=== PATIENT | female | born 1995 | race Caucasian/White ===

== ENCOUNTER 2023-12-11 13:55 | Emergency (ER) | payer OTHER ==
[2023-12-11 15:06] VITALS: O2SAT 98
--- NOTE | 2023-12-11 16:47 | ED Physician Documentation ---
PD HPI URI - Stated complaint Stated Complaint: COUGH,N/V,LIGHTHEADED - Chief complaint Chief Complaint: Resp - Additional information Additional information: 28-year-old female with history of asthma and type 2 diabetes presents emergency department for 1 day of cough nausea vomiting. Patient says that her daughter has had very similar symptoms for about a week or so now she is also checking into the ER as a patient for further evaluation of this. She has had no fevers or chills reports that she has asthma but feels like her symptoms have been alleviated with DuoNebs at home and albuterol. Patient reports that she knows that there is a lot of pneumonia as well as bronchitis going around the community right now she just wanted to double check to see if this is something that she is also experiencing. PD PAST MEDICAL HISTORY - Past Medical History Past Medical History: Yes Endocrine/Autoimmune: Type 2 diabetes - Past Surgical History Past Surgical History: No - Present Medications Home Medications: Ambulatory Orders Medication Instructions Recorded Confirmed Albuterol Sulf [Ventolin Hfa 1 - 2 puffs INH Q4HR PRN #1 ea 12/11/23 Inhaler] Benzonatate [Tessalon] 100 mg PO TID #30 cap 12/11/23 - Allergies Allergies/Adverse Reactions: Allergies Allergy/AdvReac Type Severity Reaction Status Date / Time Sulfa (Sulfonamide Allergy Unknown Verified 12/11/23 15:31 Antibiotics) - Social History Does the pt smoke?: No Smoking Status: Former smoker Does the pt drink ETOH?: No Does the pt have substance abuse?: No PD ED PE NORMAL - Vitals Vital signs reviewed: Yes - General General: Alert and oriented X 3, No acute distress, Well developed/nourished - HEENT HEENT: Atraumatic, PERRL - Cardiac Cardiac: RRR, No murmur, No gallop, Strong equal pulses - Respiratory Respiratory: No respiratory distress, Clear bilaterally - Derm Derm: Normal color, Warm and dry, No rash - Extremities Extremities: No edema, No calf tenderness / cord - Psych Psych: Normal mood, Normal affect Results - Vitals Vitals: Vital Signs - 24 hr 12/11/23 12/11/23 14:17 17:50 Temperature 35.7 C L Heart Rate 108 H 98 Respiratory 18 16 Rate Blood Pressure 130/93 H 145/90 H O2 Saturation 98 98 Oxygen O2 Source Room air - Labs Labs: Laboratory Tests 12/11/23 16:10 Nasal Adenovirus (PCR) NOT DETECTED Nasal B. parapertussis DNA (PCR) NOT DETECTED Nasal Coronavir 229E PCR NOT DETECTED Nasal Coronavir HKU1 PCR NOT DETECTED Nasal Coronavir NL63 PCR NOT DETECTED Nasal Coronavir OC43 PCR NOT DETECTED Nasal Enterovir/Rhinovir PCR NOT DETECTED Nasal Influenza B PCR NOT DETECTED Nasal Influenza A PCR NOT DETECTED Nasal Parainfluen 1 PCR NOT DETECTED Nasal Parainfluen 2 PCR NOT DETECTED Nasal Parainfluen 3 PCR NOT DETECTED Nasal Parainfluen 4 PCR NOT DETECTED Nasal RSV (PCR) NOT DETECTED Nasal B.pertussis DNA PCR NOT DETECTED Nasal C.pneumoniae (PCR) NOT DETECTED Filipe Human Metapneumo PCR NOT DETECTED Nasal M.pneumoniae (PCR) NOT DETECTED Nasal SARS-CoV-2 (PCR) NOT DETECTED PD Medical Decision Making - ED course ED course: 28-year-old female presents emergency department with her daughter who is also checking in with the patient for upper respiratory infection symptoms. We did complete a respiratory swab on the patient and that she does not appear to have any detectable viruses that we were able to pick up operator although patient's daughter's chest x-ray shows possible viral pneumonitis. She is offered a DuoNeb here in the emergency department but kindly declined and said that she takes DuoNebs at home she does not have albuterol inhaler. She is not having any wheezing shortness of breath or chest pain making me less concerned about some sort of possible acute coronary syndrome. I will leave any further workup is indicated patient is overall quite well-appearing lung sounds are clear throughout she was given albuterol inhaler prescription she is asking for antibiotics for bronchitis I informed her that this is not something we typically do for bronchitis and that it is not recommended to treat bronchitis with antibiotics. After shared decision making patient was agreeable to the plan with just An albuterol inhaler and follow-up with her primary care provider. Return precautions given patient is safe for discharge and understands discharge plan. Departure - Departure Disposition: 01 Home, Self Care Clinical Impression: Bronchitis Instructions: Bronchitis Acute Dc, ED Upper Resp Infec No Abx Tx Prescriptions: Albuterol Sulf [Ventolin Hfa Inhaler] 1 - 2 puffs INH Q4HR PRN #1 ea PRN Reason: Wheezing Benzonatate [Tessalon] 100 mg PO TID #30 cap Comments: Thank you for trusting us with your care. I believe that you are experiencing viral bronchitis as you and your daughter have the same symptoms. Please come back to the emergency department for having any worsening shortness of breath chest pain, fevers or chills. I sent a prescription of Tesfarrah Perles a cough suppressant as well as albuterol inhaler to your preferred pharmacy. You can take Tylenol ibuprofen for any pain or discomfort that you are experiencing from this. Make sure that you are eating a healthy well-balanced diet while your body is recovering from this virus the healthier you are able to eat the quicker your body will be able to recover from this illness. Please follow-up with your inside account representative letting them know about today's ER visit and please come back to the ER if you notice any worsening symptoms. Forms: PCP List Discharge Date/Time: 12/11/23 17:51
[2023-12-11 17:20] LABS: B. PARAPERTUSSIS- RESP PCR PAN NOT DETECTED; B. PERTUSSIS- RESP PCR PANEL NOT DETECTED; C. PNEUMONIAE- RESP PCR PANEL NOT DETECTED; CORONAVIRUS 229E-RESP PCR NOT DETECTED; CORONAVIRUS HKU1-RESP PCR NOT DETECTED; CORONAVIRUS NL63-RESP PCR NOT DETECTED; CORONAVIRUS OC43-RESP PCR NOT DETECTED; HUMAN METAPNEUMOVIRUS NOT DETECTED; INFLUENZA A- RESP PCR PANEL NOT DETECTED; INFLUENZA B - RESP PCR PANEL NOT DETECTED; M. PNEUMONIAE- RESP PCR PANEL NOT DETECTED; PARAINFLUENZA VIRUS 1 NOT DETECTED; PARAINFLUENZA VIRUS 2 NOT DETECTED; PARAINFLUENZA VIRUS 3 NOT DETECTED; PARAINFLUENZA VIRUS 4 NOT DETECTED; RHINOVIRUS/ENTEROVIRUS NOT DETECTED; RSV- RESP PCR PANEL NOT DETECTED; SARS-CoV-2 -RESP PCR PANEL NOT DETECTED
[2023-12-11 17:53] VITALS: BP 145/90
== END 2023-12-11 17:51 | disposition home or self-care (01) ==
LOC: ED 13:55
DX: J40 Bronchitis, not specified as acute or chronic (principal); Z87.891 Personal history of nicotine dependence
CPT/HCPCS: 87633; 99283